=== PATIENT | female | born 1970 ===

== ENCOUNTER 2018-05-14 14:35 | Emergency (ER) | payer BC, OTHER ==
[2018-05-14 14:36] VITALS: BMI 20.2
[2018-05-14 14:56] VITALS: BP 144/79; PULSE 63; RESP 16; TEMP 97.3; O2SAT 99
--- NOTE | 2018-05-14 15:47 | ED PDOC ---
Upper Extremity Pain/Injury Time Seen by Provider: 05/14/18 14:58 Chief Complaint (Nursing): Upper Extremity Problem/Injury Chief Complaint (Provider): Upper Extremity Pain History Per: Patient History/Exam Limitations: no limitations Onset/Duration Of Symptoms: Days (1x week) Current Symptoms Are (Timing): Still Present Severity: Moderate Additional Complaint(s): 48 year old female with no past medical history presents to the ED for an evaluation of left shoulder pain that started 1x week ago. 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 Patient reports taking ibuprofen (last dose yesterday) with some improvement, but was unable to raise her left arm past shoulder height before onset of pain. Patient reports that the pain also shoots down her arm causing some numbness and tingling in her hand. Patient denies having trauma, falls, neck pain, or back pain. PMD: None provided. Past Medical History Reviewed: Historical Data, Nursing Documentation, Vital Signs Vital Signs: Last Vital Signs Temp 97.3 F L 05/14/18 14:51 Pulse 63 05/14/18 14:51 Resp 16 05/14/18 14:51 BP 144/79 05/14/18 14:51 Pulse Ox 99 05/14/18 14:51 BLADIMIR Report Viewed: Yes - Medical History PMH: No Chronic Diseases - Surgical History Other surgeries: tubal ligation, mass removed from left arm 1995. - Family History Family History: States: No Known Family Hx - Social History Current smoker - smoking cessation education provided: No Alcohol: None Drugs: Denies - Home Medications Home Medications: Ambulatory Orders Medication Instructions Recorded Naproxen [Naprosyn] 1 tab PO BID PRN #25 tab 06/30/15 Oseltamivir Cap [Tamiflu] 1 cap PO BID #10 cap 06/30/15 Cephalexin [Keflex] 500 mg PO QID #28 capsule 03/17/16 Ibuprofen [Motrin] 600 mg PO Q8 PRN #21 tab 03/17/16 Promethazine/Codeine 5 ml PO Q12 PRN #100 ml 03/17/16 [Codeine/Promethazine 10 MG/5 Ml-6.25 MG/5 Ml] Pseudoephedrine [Sudafed Tab] 1 tab PO Q6 PRN #24 tab 03/17/16 Cyclobenzaprine [Cyclobenzaprine 10 mg PO Q8 PRN 5 Days tab 05/14/18 HCl] Ibuprofen [Motrin Tab] 800 mg PO Q6 PRN 7 Days tab 05/14/18 - Allergies Allergies/Adverse Reactions: Allergies Allergy/AdvReac Type Severity Reaction Status Date / Time No Known Allergies Allergy Verified 03/17/16 10:50 Review of Systems ROS Statement: Except As Marked, All Systems Reviewed And Found Negative Musculoskeletal: Positive for: Shoulder Pain (left shoulder pain, sometimes shoots down arm causing numbness and tingling). Negative for: Neck Pain, Back Pain Physical Exam - Reviewed Nursing Documentation Reviewed: Yes Vital Signs Reviewed: Yes - Physical Exam Appears: Positive for: Well, Non-toxic, No Acute Distress Head Exam: Positive for: ATRAUMATIC, NORMOCEPHALIC Skin: Positive for: Normal Color, Warm, Dry Pulses-Radial (L): 2+ Extremity: Positive for: Other (left arm: (-) ecchymosis, (-) erythema, (-) deformity, (-) swelling on left shoulder. Decreased ROM with flexion, abduction, and extension at left shoulder. Pain on palpation of anterior left shoulder. Capillary refill <2 seconds.) Neurologic/Psych: Positive for: Alert, Oriented (3x), Other (director staffing strength equal in bilateral upper extremities. sensation to light touch equal in bilateral upper extremities. ) - ECG O2 Sat by Pulse Oximetry: 99 (RA) Pulse Ox Interpretation: Normal Medical Decision Making Medical Decision Makin:58 Initial impression: 48 year old female with atraumatic shoulder pain Initial plan: * toradol 30 mg IM * flexeril 10 mg PO * reevaluation 16:30 Upon reevaluation, patient reports an improvement in shoulder pain. Patient is able to raise her left shoulder more. 16:53 Patient is stable for discharge home. Scribe Attestation: Documented Thomas Oreilly, acting as a scribe for Collette Bowens PA-C. Provider Scribe Attestation: All medical record entries made by the Scribe were at my direction and personally dictated by me. I have reviewed the chart and agree that the record accurately reflects my personal performance of the history, physical exam, medical decision making, and the department course for this patient. I have also personally directed, reviewed, and agree with the discharge instructions and disposition. Disposition - Clinical Impression Clinical Impression: Shoulder pain - Disposition Referrals: Fantasma Oneal III, MD [Staff Provider] - Disposition Time: 16:53 Condition: STABLE Additional Instructions: Follow-up with orthopedist for further evaluation of shoulder pain. Take Flexeril and Ibuprofen as needed for pain. Avoid taking Flexeril if you will be driving, working or operating heavy machinery. Prescriptions: Ibuprofen [Motrin Tab] 800 mg PO Q6 PRN 7 Days tab PRN Reason: Pain, Moderate (4-7) Instructions: Shoulder Pain (DC) Forms: [employer] (Lithuanian) Print Language: FRENCH
== END 2018-05-14 16:58 | disposition home or self-care (01) ==
LOC: H.ER 14:35
DX: M25.512 Pain in left shoulder (principal)
CPT/HCPCS: 96372; 99283; J1885